=== PATIENT | female | born 1995 | race Caucasian/White ===

== ENCOUNTER 2022-06-06 07:59 | Emergency (ER) | payer MEDICAID ==
[~2022-06-06] VITALS: Ht 157.5 cm; Wt 49.9 kg
[2022-06-06 08:01] VITALS: BP 119/69
--- NOTE | 2022-06-06 08:06 | NUR ---
PT AMB TO BED 4.
--- NOTE | 2022-06-06 08:09 | NUR ---
26/F C/O HEADACHE ACCOMPANIED BY NAUSEA ONSET 3DAYS. STATES 10/10 CONSTANT PAIN. STATES TAKING IBUPROFEN LAST AT 4AM. DENIES FALL OR TRAUMA. VITALS STABLE. STATES HX MIGRAINE. AMBULATORY. AAO4. PMH:MIGRAINE
[2022-06-06] MEDS ORDERED: PROCHLORPERAZINE 10 MG/2 ML VIAL IM ONE (08:40)
[2022-06-06] MEDS ORDERED: KETOROLAC 15 MG/ML VIAL IM ONE (08:40)
--- NOTE | 2022-06-06 08:57 | NUR ---
PT BACK FROM CT
--- NOTE | 2022-06-06 09:42 | NUR ---
PT HAD 1 EPISODE OF EMESIS. ERMD MADE AWARE
[2022-06-06] MEDS ORDERED: IBUP-2213 PO (09:49)
[2022-06-06] MEDS ORDERED: ONDA-188 PO (09:50)
--- NOTE | 2022-06-06 09:55 | NUR ---
Patient discharged with v/s stable. Written and verbal after care instructions given and explained. Patient alert, oriented and verbalized understanding of instructions. Ambulatory with steady gait. All questions addressed prior to discharge. ID band removed. Patient advised to follow up with PMD. Patient educated on indication of medication including possible reaction and side effects. Opportunity to ask questions provided and answered.
[2022-06-06] MEDS ORDERED: DIPH25TA53 PO (14:39)
== END 2022-06-06 09:55 | disposition home or self-care (01) ==
LOC: MED 07:59
DX: G43.909 Migraine, unspecified, not intractable, without status migrainosus (principal); R11.10 Vomiting, unspecified; Z79.899 Other long term (current) drug therapy
CPT/HCPCS: 70450; 81025; 96372; 99284; J0780; J1885; Q0163

== ENCOUNTER 2022-06-06 11:22 | Emergency (ER) | payer MEDICAID ==
[~2022-06-06] VITALS: Ht 157.5 cm; Wt 48.6 kg
[~2022-06-06 11:22] MED LIST: IBUP-2213 PO; ONDA-188 PO
[2022-06-06 11:34] VITALS: BP 123/76
[2022-06-06] MEDS ORDERED: LORazepam 2 MG/ML VIAL ONE (12:17)
[2022-06-06] MEDS ORDERED: LORazepam 2 MG/ML VIAL IM ONE (12:20)
--- NOTE | 2022-06-06 12:28 | NUR ---
PT C/O ANXIETY, STACH IN 120S, HYPERVENTILATING. MEDICATED PER ORDER
[2022-06-06] MEDS ORDERED: diphenhydrAMINE 50 MG/ML VIAL ONE (12:56)
[2022-06-06] MEDS ORDERED: diphenhydrAMINE 50 MG/ML VIAL IVP ONE (13:00)
--- NOTE | 2022-06-06 13:02 | NUR ---
PT REMAINS ANXIOUS AND "SHAKEY" IV INSERTED AND MEDICATED WITH BENADRYL PER ORDER
[2022-06-06] MEDS ORDERED: DIPH25TA53 PO (14:39)
[2022-06-06 15:31] VITALS: BP 111/64
--- NOTE | 2022-06-06 15:32 | NUR ---
Patient discharged with v/s stable. Written and verbal after care instructions given and explained. Patient alert, oriented and verbalized understanding of instructions. Ambulatory with steady gait. All questions addressed prior to discharge. ID band removed. Patient advised to follow up with PMD. Rx of BENADRYL given. Patient educated on indication of medication including possible reaction and side effects. Opportunity to ask questions provided and answered.
== END 2022-06-06 15:31 | disposition home or self-care (01) ==
LOC: MED 11:22
DX: F41.9 Anxiety disorder, unspecified (principal); G25.71 Drug induced akathisia; Z79.899 Other long term (current) drug therapy
CPT/HCPCS: 96372; 96374; 99284; J1200; J2060

== ENCOUNTER 2023-10-09 17:22 | Emergency (ER) | payer MEDICAID ==
[~2023-10-09] VITALS: Ht 160 cm; Wt 55.3 kg
[~2023-10-09 17:22] MED LIST changes: +DIPH25TA53 PO
[2023-10-09 17:38] VITALS: BP 120/84; PULSE 98; RESP 19; TEMP 98.6; O2SAT 99
[2023-10-09] MEDS: ONDANSETRON 4 MG ODT PO ONE (18:17)
[2023-10-09] MEDS: KETOROLAC 60 MG/2 ML VIAL IM ONE (18:20)
[2023-10-09 18:44] LABS: FLU A ANTIGEN negative (NEGATIVE); FLU B ANTIGEN NEGATIVE (NEGATIVE)
[2023-10-09] MEDS ORDERED: ONDA-188 SL (18:58)
[2023-10-09] MEDS ORDERED: IBUP-2218 PO (18:58)
[2023-10-09 19:07] VITALS: BP 126/84; PULSE 79; RESP 19; TEMP 98.6; O2SAT 99
== END 2023-10-09 19:07 | disposition home or self-care (01) ==
LOC: MED 17:22
DX: G43.909 Migraine, unspecified, not intractable, without status migrainosus (principal); Z20.822 Contact with and (suspected) exposure to COVID-19; Z79.899 Other long term (current) drug therapy
CPT/HCPCS: 81002; 81025; 87426; 87804; 96372; 99283; J1885; Q0162

== ENCOUNTER 2023-12-22 20:01 | Emergency (ER) | payer MEDICAID ==
[~2023-12-22] VITALS: Ht 157.5 cm; Wt 56.7 kg
[~2023-12-22 20:01] MED LIST changes: +IBUP-2218 PO; +ONDA-188 SL
[2023-12-22 20:11] VITALS: BP 124/43; PULSE 115; RESP 20; TEMP 97.9; O2SAT 100
[2023-12-22] MEDS: HYDROXYZINE HYDROCHLORIDE 25 MG TAB PO ONE (20:35)
[2023-12-22 20:42] LABS: APPEARANCE,URINE CLEAR (CLEAR); BILIRUBIN,URINE NEGATIVE (NEGATIVE); BLOOD, URINE NEGATIVE (NEGATIVE); COLOR,URINE YELLOW (YELLOW); LEUKOCYTE ESTERASE ,URINE NEGATIVE (NEGATIVE); NITRITE, URINE NEGATIVE (NEGATIVE); PROTEIN,URINE NEGATIVE (NEGATIVE); UGLUCOSE NEGATIVE (NEGATIVE); UROBILINOGEN,URINE 0.2 EU/dL (0.2 - 1)
[2023-12-22 20:55] LABS: BARBITURATE, URINE NEGATIVE ng/ml (NEG <=200)
[2023-12-22 20:56] LABS: AMPHETAMINE, URINE NEGATIVE ng/ml (NEG <=1000); BENZODIAZEPINE, URINE NEGATIVE ng/mL (NEG <=200); CANNABINOID, URINE POSITIVE ng/mL (NEG <=50); COCAINE, URINE NEGATIVE ng/mL (NEG <=300); OPIATE, URINE NEGATIVE ng/mL (NEG <=2000); PHENCYCLIDINE SCREEN,URINE NEGATIVE ng/mL (NEG <=25)
[2023-12-22 20:59] LABS: BASOPHILS % (AUTO) 0.3 % (0.0-2.0); EOSINOPHILS % (AUTO) 0.1 % (0.0-4.0); HEMATOCRIT 35.9 % (36-48); HEMOGLOBIN 12.5 g/dL (12.0-16.0); LYMPHOCYTES # (AUTO) 0.6 K/uL (2.5-16.5); LYMPHOCYTES % (AUTO) 9.1 % (20.5-51.1); MEAN CORPUSCULAR HEMOGLOBIN 32 pg (27-31); MEAN CORPUSCULAR HGB CONC 35 g/dL (33-37); MEAN CORPUSCULAR VOLUME 92.5 fL (80-94); MONOCYTES # (AUTO) 0.3 K/uL (0.8-1.0); MONOCYTES % (AUTO) 5.3 % (1.7-9.3); NEUTROPHILS # (AUTO) 5.2 K/uL (1.8-7.7); NEUTROPHILS % (AUTO) 85.2 % (42.2-75.2); PLATELET COUNT (AUTO) 257 K/uL (140-450); RED BLOOD CELL COUNT(AUTO) 3.88 MIL/uL (4.20-5.40); RED CELL DISTRIBUTION WIDTH 13.4 % (11.6-13.7); WHITE BLOOD COUNT (AUTO) 6.1 K/uL (4.8-10.8)
[2023-12-22 21:23] LABS: ALANINE AMINOTRANSFERASE 14 U/L (12-78); ALBUMIN 4.3 g/dL (3.4-5.0); ALCOHOL, BLOOD < 3 mg/dL (<10); ALKALINE PHOSPHATASE 43 U/L (50-136); ASPARTATE AMINOTRANSFERASE 14 U/L (15-37); BILIRUBIN,DIRECT 0.1 mg/dL (0.0-0.3); THYROID STIMULATING HORMONE 1.68 uIU/mL (0.34-3.74); TOTAL BILIRUBIN 0.6 mg/dL (0.0-1.0); TOTAL PROTEIN, SERUM 7.2 g/dL (6.4-8.2)
[2023-12-22 21:28] LABS: ANION GAP 14.9 (8-16); CALCIUM 8.4 mg/dL (8.5-10.1); CARBON DIOXIDE 23.5 mmol/L (21-32); CREATININE 0.7 mg/dL (0.6-1.3); POTASSIUM 3.4 mmol/L (3.5-5.1)
[2023-12-22] MEDS ORDERED: ATA25 PO (21:30)
== END 2023-12-22 21:34 | disposition home or self-care (01) ==
LOC: MED 20:01
DX: F41.0 Panic disorder [episodic paroxysmal anxiety] (principal); Z79.899 Other long term (current) drug therapy
CPT/HCPCS: 36415; 80048; 80076; 80305; 81003; 81025; 84443; 85025; 99283; G0482